=== PATIENT | female | born 1955 | race American Indian/Alaskan Native ===

== ENCOUNTER 2018-10-31 07:00 | Day surgery (SDC) | payer OTHER ==
--- NOTE | 2018-10-31 07:32 | Anesthesia Consultation ---
Anesthesia Consult and Med Hx Date of service: 10/31/18 - Airway Anesthetic Teeth Evaluation: Partials (upper and lower) ROM Head & Neck: Adequate Mental/Hyoid Distance: Adequate Mallampati Class: Class III Intubation Access Assessment: Possibly Difficult - Pre-Operative Health Status ASA Pre-Surgery Classification: ASA3 Proposed Anesthetic Plan: MAC - Cardiovascular System Hx Hypertension: Yes Hx Coronary Artery Disease: No (high cholesterol) - Endocrine Hx Insulin Dependent Diabetes: Yes - Other Systems Hx Obesity: Yes (overweight)
--- NOTE | 2018-10-31 07:32 | Anesthesia Day of Surgery ---
Anesthesia Day of Surgery - Day of Surgery Patient Examined: Yes Patient H&P Reviewed: Yes Patient is NPO: Yes
[2018-10-31] MEDS ORDERED: NACL 0.9% 1000 ML 1,000 ML IV SCH (08:00)
[2018-10-31] MEDS ORDERED: WATER FOR IRRIG STERILE IR ONE (08:19)
[2018-10-31] MEDS ORDERED: DIPRIVAN 10 MG/ML IV ONE ×2 (08:31)
--- NOTE | 2018-10-31 09:09 | Procedure Note ---
Date of procedure: 10/31/18 Pre-op diagnosis: Colon Polyp Screening Post-op diagnosis: other (Two small Recto-Sigmoid Polyps (possibly hyperplastic)/ Few small Cecal Divedrticuli/ Minor,Internal Hemorrhoid) Procedure: Colonoscopy with Biiopsy Anesthesia: MAC Surgeon: ALLY GLASER Estimated blood loss: minimal Pathology: list Specimen disposition: to lab Condition: stable Disposition: same day (Avoid aspirin and NSAID for 5 days. Encourage fiber intake and follow up in 1 to 2 weeks ([phone]).)
[2018-10-31 09:36] VITALS: BP 138/86
--- NOTE | 2018-10-31 09:43 | Operative Report ---
PROCEDURE PERFORMED: Colonoscopy. INDICATIONS: This is a 63-year-old female with an underlying history of diabetes mellitus type 2; hypertension; prior history of colon polyps; family history of cancer, the patient's mother had breast cancer and father had some form of cancer that she is not aware of. Last colonoscopy was done several years ago. Colonoscopy was done to make sure that there were not any polyps. DESCRIPTION OF PROCEDURE: Procedure was done after getting informed consent with MAC anesthesia. Initial rectal exam was unremarkable. Instrument was passed through the rectum onto the cecum, which was identified by the ileocecal valve and the appendiceal orifice. There were a few minor diverticula noted in the proximal colon. The remaining part of the proximal colon had diverticula involving the cecum. The remaining part of the proximal colon, which included the cecum and ascending colon as well as the transverse colon and the descending colon and most of the sigmoid showed normal mucosa without any additional appearance of any polyps, colitis, or diverticular disease. There were a few minor diverticula noted in the cecum as stated above. In the rectosigmoid area, there were 2 small polyps, possibly hyperplastic that were noted and removed by cold biopsy and the rectum showed some minor internal hemorrhoids on the retroverted view. There was some minimal bleeding from the biopsy sites. No complications associated with the procedure. ASSESSMENT: Colon polyp screening. Two small rectosigmoid polyps noted, possibly hyperplastic; minor proximal colon diverticula involving the cecum; minor internal hemorrhoid. PLAN: The patient will be encouraged to take fiber supplements, avoid aspirin and aspirin-related products for the next few days and follow up in the office in 1-2 weeks' time. The procedure was done in the presence of Jannet NORTON, and the GI lab team that were within the room for the entirety of the procedure. JOB# [id number] COLE/SJ
== END 2018-10-31 07:01 | disposition home or self-care (01) ==
LOC: GIO 07:00
DX: Z12.11 Encounter for screening for malignant neoplasm of colon (principal); D12.5 Benign neoplasm of sigmoid colon; K57.30 Diverticulosis of large intestine without perforation or abscess without bleeding; K64.8 Other hemorrhoids; E11.9 Type 2 diabetes mellitus without complications; I10 Essential (primary) hypertension; F17.210 Nicotine dependence, cigarettes, uncomplicated; I25.10 Atherosclerotic heart disease of native coronary artery without angina pectoris; E78.00 Pure hypercholesterolemia, unspecified; E66.9 Obesity, unspecified; Z68.33 Body mass index [BMI] 33.0-33.9, adult; Z80.3 Family history of malignant neoplasm of breast; Z86.010 Personal history of colon polyps; Z90.710 Acquired absence of both cervix and uterus; Z79.899 Other long term (current) drug therapy; Z80.8 Family history of malignant neoplasm of other organs or systems; Z79.84 Long term (current) use of oral hypoglycemic drugs; Z98.890 Other specified postprocedural states
CPT/HCPCS: 45380; 82962; 88305; J2704; J7030

== ENCOUNTER 2020-02-02 06:33 | Emergency (ER) | payer OTHER ==
[2020-02-02 06:50] VITALS: BP 154/92
--- NOTE | 2020-02-02 10:07 | Cat Scan Report ---
CT cervical spine wo con INDICATION / CLINICAL INFORMATION: 64 years Female; MAIN. TECHNIQUE: Axial CT images of the cervical spine were obtained. Sagittal and coronal reformatted images were pr oduced. All CT scans at this location are performed using CT dose reduction for ALARA by means of aut omated exposure control. COMPARISON: None available. FINDINGS: POST-SURGICAL CHANGES: None. ALIGNMENT: Normal cervical lordosis seen without significant scoliosis. VERTEBRAE: No signs of fracture. Vertebral bodies are grossly normal in height throughout. There is osseous foraminal narrowing on the left at C5-6 from uncinate hypertrophy. Anterior spondylo sis seen at this level as well. INTRAVERTEBRAL DISCS: Mild disc space narrowing seen at C5-6. Mild disc disease seen at various level s. No dominant herniation or canal stenosis appreciated. PARASPINAL SOFT TISSUES: No significant abnormality. ADDITIONAL FINDINGS: Degenerative changes seen in the first costoclavicular joints bilaterally. IMPRESSION: 1. No signs of acute bony trauma to the cervical spine. Signer Name: Manish Corado MD, III Signed: 02/02/2020 10:02 AM Workstation Name: [email or web address]
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
== END 2020-02-02 10:37 | disposition home or self-care (01) ==
LOC: ED 06:33
DX: S46.919A Strain of unspecified muscle, fascia and tendon at shoulder and upper arm level, unspecified arm, initial encounter (principal); M54.2 Cervicalgia; I10 Essential (primary) hypertension; E11.9 Type 2 diabetes mellitus without complications; Z90.710 Acquired absence of both cervix and uterus; Z79.84 Long term (current) use of oral hypoglycemic drugs; Z79.899 Other long term (current) drug therapy; V49.49XA Driver injured in collision with other motor vehicles in traffic accident, initial encounter; Y93.89 Activity, other specified; Y92.410 Unspecified street and highway as the place of occurrence of the external cause; Y99.8 Other external cause status
CPT/HCPCS: 72125